=== PATIENT | male | born 1965 | race Caucasian/White ===

== ENCOUNTER 2017-06-13 11:08 | Emergency (ER) | payer MEDICAID, OTHER ==
[~2017-06-13] VITALS: Ht 170.2 cm; Wt 70.0 kg
[2017-06-13 11:10] VITALS: BP 148/74; PULSE 78; RESP 16; TEMP 98; O2SAT 99
--- NOTE | 2017-06-13 12:07 | PD ---
HPI Chief Complaint: Suicide Ideation/Attempt Time Seen by Provider: 11:44 (Urbano Alarcon) Travel History International Travel<30 days: No Contact w/Intl Traveler<30days: No Traveled to known affect area: No (Urbano Alarcon) History of Present Illness HPI This is a 51-year-old male who presents under Sheehan act initiated by the Police Department. According to his paperwork his girlfriend called the police because he was trying to hang himself. The patient reports that several years ago he was diagnosed with bipolar disorder however he is not on any medications for this. He reports that today he did something "stupid" when he was upset and he put a shoe string around his neck but he did not actually have any intention of trying to kill himself. He denies any substance use. He does report occasional marijuana use. He denies any alcohol use. He denies any hallucinations. He has no medical complaints at this time. (Urbano Alarcon) [facility] Social History Alcohol Use: No Tobacco Use: Yes Substance Use: Yes (Urbano Alarcon) Allergies-Medications (Allergen,Severity, Reaction): Coded Allergies: Penicillins (Verified Allergy, Unknown, 06/13/17) Reported Meds & Prescriptions Reported Meds & Active Scripts Active No Active Prescriptions or Reported Medications (Simona Joya) Review of Systems Except as stated in HPI: all other systems reviewed are Neg (Urbano Alarcon) Physical Exam Narrative GENERAL: Well-developed well-nourished male in no acute distress SKIN: Warm and dry. HEAD: Atraumatic. Normocephalic. EYES: Pupils equal and round. No scleral icterus. No injection or drainage. ENT: No nasal bleeding or discharge. Mucous membranes pink and moist. NECK: Trachea midline. No JVD. CARDIOVASCULAR: Regular rate and rhythm. No murmur appreciated. RESPIRATORY: No accessory muscle use. Clear to auscultation. Breath sounds equal bilaterally. GASTROINTESTINAL: Abdomen soft, non-tender, nondistended. Hepatic and splenic margins not palpable. MUSCULOSKELETAL: No obvious deformities. No clubbing. No cyanosis. No edema. NEUROLOGICAL: Awake and alert. No obvious cranial nerve deficits. Motor grossly within normal limits. Normal speech. PSYCHIATRIC: Appropriate mood and affect; insight and judgment normal. (Urbano Alarcon) Data Data Last Documented VS Vital Signs Date Time Temp Pulse Resp B/P (MAP) Pulse Ox O2 Delivery O2 Flow Rate FiO2 06/13/17 11:10 98.0 78 16 148/74 (98) 99 (Simona Joya) Orders Orders Complete Blood Count With Diff (06/13/17 11:27) Comprehensive Metabolic Panel (06/13/17 11:27) Thyroid Stimulating Hormone (06/13/17 11:27) Psych Screen (06/13/17 11:27) Drug Screen, Random Urine (06/13/17 11:27) Alcohol (Ethanol) (06/13/17 11:27) Salicylates (Aspirin) (06/13/17 11:27) Tylenol (Acetaminophen) (06/13/17 11:27) (Simona Joya) Labs Laboratory Tests Test 06/13/17 11:30 White Blood Count 13.3 TH/MM3 Red Blood Count 4.81 MIL/MM3 Hemoglobin 14.7 GM/DL Hematocrit 42.2 % Mean Corpuscular Volume 87.6 FL Mean Corpuscular Hemoglobin 30.5 PG Mean Corpuscular Hemoglobin Concent 34.8 % Red Cell Distribution Width 12.7 % Platelet Count 231 TH/MM3 Mean Platelet Volume 9.3 FL Neutrophils (%) (Auto) 80.3 % Lymphocytes (%) (Auto) 13.4 % Monocytes (%) (Auto) 4.2 % Eosinophils (%) (Auto) 1.6 % Basophils (%) (Auto) 0.5 % Neutrophils # (Auto) 10.7 TH/MM3 Lymphocytes # (Auto) 1.8 TH/MM3 Monocytes # (Auto) 0.6 TH/MM3 Eosinophils # (Auto) 0.2 TH/MM3 Basophils # (Auto) 0.1 TH/MM3 CBC Comment DIFF FINAL Differential Comment Blood Urea Nitrogen 17 MG/DL Creatinine 1.06 MG/DL Random Glucose 102 MG/DL Total Protein 8.3 GM/DL Albumin 4.3 GM/DL Calcium Level 9.2 MG/DL Alkaline Phosphatase 102 U/L Aspartate Amino Transf (AST/SGOT) 21 U/L Alanine Aminotransferase (ALT/SGPT) 24 U/L Total Bilirubin 0.3 MG/DL Sodium Level 142 MEQ/L Potassium Level 4.4 MEQ/L Chloride Level 109 MEQ/L Carbon Dioxide Level 27.2 MEQ/L Anion Gap 6 MEQ/L Estimat Glomerular Filtration Rate 73 ML/MIN Thyroid Stimulating Hormone 3rd Gen 0.591 uIU/ML Salicylates Level 8.3 MG/DL Urine Opiates Screen NEG Acetaminophen Level LESS THAN 2.0 MCG/ML Urine Barbiturates Screen NEG Urine Amphetamines Screen NEG Urine Benzodiazepines Screen NEG Urine Cocaine Screen NEG Urine Cannabinoids Screen POS Ethyl Alcohol Level LESS THAN 3 MG/DL (Simona Joya) MDM Medical Decision Making Medical Screen Exam Complete: Yes Emergency Medical Condition: Yes Medical Record Reviewed: Yes Differential Diagnosis Adjustment reaction, acute psychosis, bipolar disorder, major depressive disorder, substance-induced mood disorder Narrative Course 51-year-old male presents under Sheehan act for psychiatric evaluation. Mental health screening discussed with the patient. Psychiatric screen ordered. Lab work is been reviewed. WBC count is 13.3, total protein 8.3, drug screen is positive for cannabinoids. Otherwise his lab work is unremarkable. The patient is medically cleared for psychiatric disposition. The patient's Sheehan act has been lifted by psychiatry and he has been cleared by psychiatry. He has no medical issues that would warrant further hospitalization. He is stable for discharge. (Urbano Alarcon) Diagnosis Primary Impression: Medical clearance for psychiatric admission Med/Other Pt SpecificInfo: No Change to Meds (Urbano Alarcon) Scripts No Active Prescriptions or Reported Meds Disposition: 01 DISCHARGE HOME Condition: Stable Urbano Alarcon Jun 13, 2017 12:07 Simona Joya Jun 13, 2017 14:01
[2017-06-13 12:08] LABS: AUTOMATED NEUTROPHIL # 10.7 TH/MM3 (1.8-7.7); BASOPHIL # 0.1 TH/MM3 (0-0.2); BASOPHIL % 0.5 % (0.0-2.0); EOSINOPHIL # 0.2 TH/MM3 (0-0.4); EOSINOPHIL % 1.6 % (0.0-4.0); HEMATOCRIT 42.2 % (39.0-51.0); HEMOGLOBIN 14.7 GM/DL (13.0-17.0); LYMPH % 13.4 % (9.0-44.0); LYMPHOCYTE # 1.8 TH/MM3 (1.0-4.8); MEAN CELL VOLUME 87.6 FL (80.0-100.0); MEAN CORPUSCULAR HEMOGLOBIN 30.5 PG (27.0-34.0); MEAN CORPUSCULAR HGB CONC 34.8 % (32.0-36.0); MEAN PLATELET VOLUME 9.3 FL (7.0-11.0); MONO % 4.2 % (0.0-8.0); MONOCYTE # 0.6 TH/MM3 (0-0.9); NEUT % 80.3 % (16.0-70.0); PLATELET COUNT 231 TH/MM3 (150-450); RED BLOOD COUNT 4.81 MIL/MM3 (4.50-5.90); RED CELL DISTRIBUTION WIDTH 12.7 % (11.6-17.2); WHITE BLOOD COUNT 13.3 TH/MM3 (4.0-11.0)
[2017-06-13 12:16] LABS: ALBUMIN 4.3 GM/DL (3.4-5.0); ALT (GPT) 24 U/L (12-78); AST (GOT) 21 U/L (15-37); BICARBONATE 27.2 MEQ/L (21.0-32.0); BLOOD UREA NITROGEN 17 MG/DL (7-18); CALCIUM 9.2 MG/DL (8.5-10.1); CHLORIDE 109 MEQ/L (98-107); CREATININE 1.06 MG/DL (0.60-1.30); GLOMERULAR FILTRATION RATE 73 ML/MIN (>89); GLUCOSE,RANDOM 102 MG/DL (74-106); SODIUM (NA) 142 MEQ/L (136-145)
[2017-06-13 12:26] LABS: ACETAMINOPHEN LESS THAN 2.0 MCG/ML (10.0-30.0); ALKALINE PHOSPHATASE 102 U/L (45-117); TOTAL BILIRUBIN ADULT 0.3 MG/DL (0.2-1.0); TOTAL PROTEIN 8.3 GM/DL (6.4-8.2)
--- NOTE | 2017-06-13 14:01 | PD ---
History of Present Illness Chief Complaint: Suicide Ideation/Attempt Travel History International Travel<30 Days: No Contact w/Intl Traveler<30days: No Known affected area: No History of Present Illness: Patient is a 51-year-old male who is brought by [facility] under a Sheehan act. Sheehan act states, "patient attempted to to hang himself was a shoe cord." Patient has been for 30 years and has a 16 year old daughter. 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 He acknowledges that he made a "gester" that upset his entire family and he is very remorseful. Patient states that approximately 25 years ago he called an 800 number looking for help for his mood swings. At that time they admitted him for 1 week and placed him on Zoloft. They diagnosed him with bipolar. He only took the Zoloft for 1 month and discontinue the medication. He has had no further psychiatric care since that time. Patient denies suicidal or homicidal ideations. He states , " I have a good life and I would never take my life, I was just stressed this morning about my financial situation a did something stupid." UDS positive for marijuana. Patient present alert and oriented in hospital scrubs. 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 He denies auditory or visual hallucinations. He denies mood swings. He states that he is rarely depressed and most of the time his mood is very upbeat. He states he is slightly anxious as he has more money going out than coming in . He is open to a referral to talk about his anxiety. Patient does not meet Sheehan Act criteria. Patient is open to a follow up with [facility] to manage his anxiety. He denies SI/HI. Will lift the Sheehan Act and provide information to patient about outpatient management of his anxiety. DX: Anxiety PFSH Past Medical History Bipolar Disorder: Yes Anxiety: Yes Depression: Yes Diminished Hearing: No Immunizations Current: Yes Psychiatric History Social History Hx Alcohol Use: No Hx Tobacco Use: Yes Hx Substance Use: Yes Allergies-Medications (Allergen,Severity, Reaction): Coded Allergies: Penicillins (Verified Allergy, Unknown, 06/13/17) Reported Meds & Prescriptions Reported Meds & Active Scripts Active No Active Prescriptions or Reported Medications Mental Status Examination Appearance: Appropriate Consciousness: Alert Orientation: x4 Motor Activity: Normal gait Speech: Unremarkable Language: Adequate Fund of Knowledge: Adequate Attention and Concentration: Adequate Memory: Unremarkable Mood: Appropriate, Good Affect: Appropriate, Euthymic Thought Process & Associations: Intact Thought Content: Appropriate Hallucination Type: None Delusion Type: None Suicidal Ideation: No Suicidal Plan: No Suicidal Intention: No Homicidal Ideation: No Homicidal Plan: No Homicidal Intention: No Insight: Adequate Judgment: Adequate MDM Medical Decision Making Medical Record Reviewed: Yes Assessment/Plan Patient currently struggling financially. 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 He has a good support system in place with and 16 year old daughter. Patient denies SI/HI. Will lift Sheehan Act and he will follow up with [facility] to help him manage his anxiety. Dx: Anxiety Request HC Surrog/Guard Advoc?: No Orders Orders Complete Blood Count With Diff (06/13/17 11:27) Comprehensive Metabolic Panel (06/13/17 11:27) Thyroid Stimulating Hormone (06/13/17 11:27) Psych Screen (06/13/17 11:27) Drug Screen, Random Urine (06/13/17 11:27) Alcohol (Ethanol) (06/13/17 11:27) Salicylates (Aspirin) (06/13/17 11:27) Tylenol (Acetaminophen) (06/13/17 11:27) Results Vital Signs Date Time Temp Pulse Resp B/P (MAP) Pulse Ox O2 Delivery O2 Flow Rate FiO2 06/13/17 11:10 98.0 78 16 148/74 (98) 99 Laboratory Tests Test 06/13/17 11:30 White Blood Count 13.3 Red Blood Count 4.81 Hemoglobin 14.7 Hematocrit 42.2 Mean Corpuscular Volume 87.6 Mean Corpuscular Hemoglobin 30.5 Mean Corpuscular Hemoglobin Concent 34.8 Red Cell Distribution Width 12.7 Platelet Count 231 Mean Platelet Volume 9.3 Neutrophils (%) (Auto) 80.3 Lymphocytes (%) (Auto) 13.4 Monocytes (%) (Auto) 4.2 Eosinophils (%) (Auto) 1.6 Basophils (%) (Auto) 0.5 Neutrophils # (Auto) 10.7 Lymphocytes # (Auto) 1.8 Monocytes # (Auto) 0.6 Eosinophils # (Auto) 0.2 Basophils # (Auto) 0.1 CBC Comment DIFF FINAL Differential Comment Blood Urea Nitrogen 17 Creatinine 1.06 Random Glucose 102 Total Protein 8.3 Albumin 4.3 Calcium Level 9.2 Alkaline Phosphatase 102 Aspartate Amino Transf (AST/SGOT) 21 Alanine Aminotransferase (ALT/SGPT) 24 Total Bilirubin 0.3 Sodium Level 142 Potassium Level 4.4 Chloride Level 109 Carbon Dioxide Level 27.2 Anion Gap 6 Estimat Glomerular Filtration Rate 73 Thyroid Stimulating Hormone 3rd Gen 0.591 Salicylates Level 8.3 Urine Opiates Screen NEG Acetaminophen Level LESS THAN 2.0 Urine Barbiturates Screen NEG Urine Amphetamines Screen NEG Urine Benzodiazepines Screen NEG Urine Cocaine Screen NEG Urine Cannabinoids Screen POS Ethyl Alcohol Level LESS THAN 3 Diagnosis Primary Impression: Medical clearance for psychiatric admission Prescriptions No Active Prescriptions or Reported Simona Zapata Jun 13, 2017 14:01
== END 2017-06-13 14:07 | disposition home or self-care (01) ==
LOC: NEPJ 11:08
DX: R45.851 Suicidal ideations (principal); F12.90 Cannabis use, unspecified, uncomplicated
CPT/HCPCS: 80053; 80307; 84443; 85025; 99283